=== PATIENT | female | born 1970 | race Caucasian/White ===

== ENCOUNTER 2024-12-29 19:25 | Emergency (ER) | payer MEDICAID, SELFPAY ==
[2024-12-29 19:30] VITALS: BP 110/72; PULSE 94; O2SAT 99
[2024-12-29 19:35] VITALS: BP 116/45; PULSE 89; RESP 16; TEMP 36.8; O2SAT 98; BMI 23.5
--- NOTE | 2024-12-29 20:07 | PC.NURSE ---
Pt arrives via EMS from [place] to have Coumadin level checked. Last checked 3 days ago at [facility] prior to arriving at [place]. Pt reports SI and does not wish to disclose plan. 1:1 sitter at bedside.
[2024-12-29 20:12] LABS: MANUAL DIFF FLAG NO
[2024-12-29 20:15] LABS: Hematocrit 43.6 % (37.0-47.0); Hemoglobin 14.0 g/dl (12.0-16.0); Imm Gran Abs Auto 0.02 X10*3/uL (0.00-0.03); Imm Gran Pct Auto 0.3 % (0.0-0.4); Lymphocytes Absolute Auto 1.7 X10*3/uL (1.2-4.9); Mean Corpuscular HGB Conc 32.1 g/dl (31.0-35.0); Mean Corpuscular Hemoglobin 28.5 pg (27.0-33.0); Mean Corpuscular Volume 88.6 fL (80.0-98.0); NRBC Abs Auto 0.000 X10*3/uL (0.0-0.012); NRBC Pct Auto 0.0 /100WBC (0.0-0.2); Platelet Count 208 X10*3/uL (160-400); Red Blood Count 4.92 X10*6/uL (4.20-5.50); White Blood Count 7.6 X10*3/uL (4.8-10.8)
[2024-12-29 20:19] LABS: INTERNATIONAL NORM RATIO 1.2 (0.9-1.1); Prothrombin Time 14.1 SEC (10.9-12.4)
[2024-12-29 20:42] LABS: Anion Gap 15 (12-20); Blood Urea Nitrogen 31 mg/dL (9-16); Calcium 9.1 mg/dL (8.4-10.2); Carbon Dioxide 26 mmol/L (22-29); Chloride 104 mmol/L (96-108); Creatinine Clr Calc Pharmacy 39.3; Estimated Glomerular Filt Rate 34; Potassium 4.9 mmol/L (3.3-5.1); Sodium 140 mmol/L (135-145)
--- NOTE | 2024-12-29 21:32 | PC.NURSE ---
Gerardo from [place] [facility] and shared pts past medical history to be bipolar, depression, anxiety, ADHD, polysubstance use, PICA, and 3 cva's. No known kidney disease at [place]. Gerardo states pt is to be started on Plavix and needing an INR level.
--- NOTE | 2024-12-29 21:49 | ED_ITS ---
HPI - Medical Clearance General Chief complaint: Medical Clearance Stated complaint: NEEDS AN INR AFTER MEDICATIONS Time Seen by Provider: 12/29/24 19:57 Source: patient Limitations: no limitations History of Present Illness ED Provider: Negin Escobedo PA-C HPI Narrative: 54-year-old female with a Von Willebrand's disease on Coumadin, presents for medical clearance. Patient arrives from [place] as section 12, given need to have blood work performed. Patient has been off her Coumadin for several days, they specifically need her current INR. Related Information Allergies Allergy/AdvReac Type Severity Reaction Status Date / Time acetaminophen (From Vicodin) Allergy Hives Verified 12/29/24 19:37 hydrocodone (From Vicodin) Allergy Hives Verified 12/29/24 19:37 Penicillins Allergy Rash Verified 12/29/24 19:37 PMFSH Past Medical History Attestation statement: The following information was validated with the patient. Social History Social History Smoked in Last 30 Days: Yes Use of substances other than those prescribed or required for medical reasons: Yes Substance Use Type: Marijuana Substance Use Frequency: Chronic Longstanding Advance Directives: No Advance Directives Information Provided: No Patient : No Physical Exam 2 Vital Signs: Vital Signs: Last Vital Signs Temp 98.2 F 12/29/24 19:35 Pulse 89 12/29/24 19:35 Resp 16 12/29/24 19:35 BP 116/45 L 12/29/24 19:35 Pulse Ox 98 12/29/24 19:35 O2 Del Method Room Air 12/29/24 19:35 BMI result Body Mass Index 23.5 Medical Decision Making Medical Decision Making [facility] Narrative: 54-year-old female with a Von Willebrand's disease on Coumadin, presents for medical clearance. Patient arrives from [place] as section 12, given need to have blood work performed. Patient has been off her Coumadin for several days, they specifically need her current INR. Problem: Von Willebrand's disease History: Per patient I have considered the following differential diagnoses: Supratherapeutic versus subtherapeutic INR , medication nonadherence Plan: We will screen basic labs checking coags I have independently reviewed the following tests: Labs: No leukocytosis, not anemic, creatinine 1.59, unclear what her baseline is, INR 1.2 Lab Data 12/29/24 19:43 12/29/24 19:43 Labs: Lab Results 12/29/24 Range/Units 19:43 WBC 7.6 (4.8-10.8) X10*3/uL RBC 4.92 (4.20-5.50) X10*6/uL Hgb 14.0 (12.0-16.0) g/dl Hct 43.6 (37.0-47.0) % MCV 88.6 (80.0-98.0) fL MCH 28.5 (27.0-33.0) pg MCHC 32.1 (31.0-35.0) g/dl RDW 17.0 H (11.0-16.0) % Plt Count 208 (160-400) X10*3/uL MPV 9.1 L (9.4-12.3) fL Immature Gran % (Auto) 0.3 (0.0-0.4) % Neut % (Auto) 66.1 (45-73) % Lymph % (Auto) 21.9 (20-40) % [place] % (Auto) 8.5 (2-11) % Eos % (Auto) 2.8 (0-4) % Baso % (Auto) 0.4 (0-2) % Lymph # (Auto) 1.7 (1.2-4.9) X10*3/uL [place] # (Auto) 0.6 (0.1-1.2) X10*3/uL Eos # (Auto) 0.2 (0.0-0.4) X10*3/uL Baso # (Auto) 0.0 (0.0-0.2) X10*3/uL Abs Immat Gran (auto) 0.02 (0.00-0.03) X10*3/uL Absolute Neuts (auto) 5.0 (2.0-8.3) x10*3/uL Absolute Nucleated RBC 0.000 (0.0-0.012) X10*3/uL Nucleated RBC % (auto) 0.0 (0.0-0.2) /100WBC PT 14.1 H (10.9-12.4) SEC INR 1.2 H (0.9-1.1) Sodium 140 (135-145) mmol/L Potassium 4.9 (3.3-5.1) mmol/L Chloride 104 (96-108) mmol/L Carbon Dioxide 26 (22-29) mmol/L Anion Gap 15 (12-20) BUN 31 H (9-16) mg/dL Creatinine 1.59 H (0.5-1.4) mg/dL Estim Creat Clear Calc 39.3 Estimated GFR 34 Random Glucose 117 H (60-115) mg/dL Calcium 9.1 (8.4-10.2) mg/dL Discharge Plan Discharge Clinical Impression: Subtherapeutic international normalized ratio (INR) Patient Disposition: [facility]fer [facility] Transfer Details: Is returning to [place] Additional Instructions: Your INR is 1.2, the arrange to be between 2.0 and 3.0. You need to have your INR repeated within 3 days. Keep taking your Coumadin as directed. Print Language: Albanian
[2024-12-29 22:41] VITALS: BP 117/73; PULSE 92; RESP 20; TEMP 36.7; O2SAT 98
[2024-12-29 22:51] VITALS: BP 117/73; PULSE 92; RESP 20; TEMP 36.7; O2SAT 98
--- NOTE | 2024-12-29 22:51 | PC.NURSE ---
Nurse to nurse report given to Mike at [place]. Pt in transit via EMS.
== END 2024-12-29 22:52 ==
PROVIDERS: Emergency Provider Emergency Medicine
DX: D68.00 Von Willebrand disease, unspecified (principal); Z79.01 Long term (current) use of anticoagulants
CPT/HCPCS: 36415; 80048; 85025; 85610; 99285